=== PATIENT | female | born 1980 | race Caucasian/White ===

== ENCOUNTER 2016-09-16 19:17 | Emergency (ER) | payer MEDICAID ==
[2016-09-16 19:19] VITALS: BMI 33.6
== END 2016-09-16 20:25 | disposition left against medical advice (07) ==
LOC: ED 19:17
DX: M54.5 Low back pain (principal)

== ENCOUNTER 2016-09-17 01:01 | Emergency (ER) | payer MEDICAID ==
[2016-09-17 01:15] VITALS: TEMP 97.5; BMI 34.2
--- NOTE | 2016-09-17 01:24 | EDPRACDOC ---
- General Information Chief Complaint: Back Pain Stated Complaint: LOWER BACK/HIP PAIN Time Seen by Provider: 09/17/16 01:20 Information Source: Patient Mode Of Arrival: Car Home Medications: Home Medications Alprazolam [Xanax] 1 mg PO QID PRN 07/04/15 Furosemide [Lasix] 20 mg PO DAILY PRN 02/02/16 Albuterol Sulfate [Proair Hfa] 2 puff INH Q4H PRN 04/25/16 Gabapentin [Neurontin] 300 mg PO DAILY 04/25/16 Lidocaine/Prilocaine [Emla Cream] 30 gm TP .PRN PRN 04/25/16 Modafinil [Provigil] 200 mg PO BID PRN 04/25/16 Omeprazole [Prilosec] 20 mg PO BID 04/25/16 Oxycodone HCl [Oxycontin] 40 mg PO Q12H 04/25/16 Rivaroxaban [Xarelto] 20 mg PO DAILY 04/25/16 Capecitabine [Xeloda] 500 mg PO . DIR 06/02/16 Oxycodone Immediate Release [Oxy-Ir] 5 mg PO Q6H PRN #15 tab 06/02/16 Sulfamethoxazole/Trimethoprim [Bactrim Ds Tablet] 1 tab PO BID #20 tab 06/02/16 Unknown Antibiotic 0 mg PO BID 06/02/16 Ciprofloxacin HCl [Cipro] 500 mg PO BID #20 tab 09/17/16 Oxycodone HCl/Acetaminophen [Percocet 5-325 mg Tablet] 1 each PO Q4 #20 tablet 09/17/16 Permethrin [Elimite] 60 gm TP . #60 cream..g. 09/17/16 Allergies/Adverse Reactions: Allergies Allergy/AdvReac Type Severity Reaction Status Date / Time morphine Allergy Unknown cramping Verified 09/17/16 01:16 hydrocodone Allergy Unknown Verified 09/17/16 01:16 - History of Present Illness Onset: 2 months HPI: PATIENT HAS A HX OF STAGE 4 COLON CANCER. SHE HAS RESECTION OF LARGE AMOUNTS OF COLON INCLUDING RECTUM. TOTAL HYSTERECTOMY AND PARTIAL LIVER REMOVAL. PATIENT CONTINUES ON CHEMOTHERAPY- LAST DOSE YESTERDAY. COMPLAINS OF BACK PAIN RIGHT FLANK. NO DYSURIA. NO FEVER. HX OF MS WITH DEGENERATIVE DISEASE. Pain Location: Reports: Right, Flank Pain Radiates To: Reports: None Pain Caused By: Reports: Spontaneous Relevant History: Reports: Cancer Currently ?: No (HYSTERECTOMY) Pain Severity: Reports: Moderate Pain Quality: Reports: Aching ED Past Medical History - History Reviewed Yes Nurses notes reviewed and agree except as marked Travel Outside of [place] in the Last 3 Months?: No - Patient Medical History GI/ History: Reports: Gastroesophageal Reflux. 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 negative: Fever, Chills, Weakness, Fatigue, Loss of Appetite Eyes: No Symptoms Reported. negative: Redness, Blurred Vision, Double Vision, Discharge, Pain, Light Sensitive, Photophobia Ears: No Symptoms Reported. negative: Pain, Hearing Loss, Drainage, Ear Pulling Throat: No Symptoms Reported. negative: Pain, Swelling Nose: No Symptoms Reported. negative: Congestion, Bleeding, Discharge, Injection, Swelling, Deformity, Ecchymosis, Tender, Abrasion, Laceration Mouth: No Symptoms Reported. negative: Pain, Drooling Respiratory: No Symptoms Reported. negative: Cough, Brassy Cough, Barky Cough, Shortness of Breath, Wheezing, Hemoptysis Cardiovascular: No Symptoms Reported. negative: Chest Pain, Palpitations, Syncope, Edema, Orthopnea, PND, Skin Mottling, Cyanosis Gastrointestinal: No Symptoms Reported. negative: Pain, Constipation, Nausea, Vomiting, Diarrhea, Melena, Formula Intolerance Genitourinary: No Symptoms Reported. negative: Dysuria, Hematuria, Frequency, Discharge, Bleeding, Testicular Pain, Neurological: No Symptoms Reported. negative: Headache, Dizziness, Seizure, Numbness, Weakness, Speech Difficulty, Gait Difficulty Musculoskeletal: Back. negative: Arm, Ankle, Chestwall, Elbow, Forearm, Femur, Foot, Hand, Hip, Knee, Leg, Neck, Pelvis, Ribs, Shoulder, Wrist Integumentary: No Symptoms Reported. negative: Itching, Rash, Bruising, Wound Allergic/Immunologic: No Symptoms Reported. negative: Hives, Itching Hematologic: No Symptoms Reported. negative: Lymphadenopathy, Easy Bruising, Easy Bleeding Endocrine: No Symptoms Reported. negative: Weight Gain, Weight Loss Psychiatric: No Symptoms Reported. negative: Anxiety, Depression, Hallucinations, Insomnia, Suicidal - Physical Exam Constitutional: Alert (Awake) Oriented to: Time, Person, Place Last recorded Vital Signs: Last Vital Signs Temp 97.5 F 09/17/16 01:08 Pulse 89 09/17/16 01:08 Resp 18 09/17/16 01:08 BP 147/86 09/17/16 01:08 Pulse Ox 98 09/17/16 01:08 Oxygen Pulse Oxygen Saturation 98 O2 Device Room Air Oxygen Flow Rate Fraction of Inspired Oxygen ( FIO2) - HEENT Head: Normal ( normocephalic) Eye Exam: Normal (PERRL, EOMI, Sclera white) Oropharynx: Normal (Pharynx:Moist without exudate,Gums-no swelling) Tympanic Membrane: Normal ENT EAC: Normal TMJ: Normal Nose: No Symptoms Reported (septum midline) Neck: Normal (FROM, trachea at midline) - Respiratory/Cardiovascular Respiratory: Normal - CTA (BBS clear to auscultation without adventitious sounds ) Cardiovascular: Normal (RRR without murmur, gallop or rub) - GI Auscultation: Normal (NABS) Palpation: Normal (Soft,No rebound or guarding, non distended) Tenderness: Non tender Moody's Sign: Negative - Bladder: Normal - Musculoskeletal Extremities: Normal (Normal tone, Pulses 2+ No cyanosis or edema, FROM) - Integumentary Skin: Normal, Warm, Dry Lymphatics: Normal (no adenopathy) - Neurologic Memory Impaired: Normal Motor Function: Normal (Normal tone, Pulses 2+ No cyanosis or edema, FROM) Cranial Nerve: Normal (CN II-X11 intact sensation, strength 5/5) Cerebellar: Normal Mood Description: Normal Perception: Normal ED Back Exam - Neurologic Motor Deficit: None Reflexes: Normal - Musculoskeletal Cervical: Normal Thoracic: Normal Lumbar: Spasm Midline: Normal Paraspinous: Spasm Straight Leg Raise: Negative Pelvis: Normal - Results 09/17/16 01:35 09/17/16 01:35 Decision Time to Discharge: 03:57 - Departure Yes I personally saw and evaluated the patient. Disposition: Home Condition: Good Final Diagnosis: Low back pain Qualifiers: Chronicity: acute Back pain laterality: right Sciatica presence: without sciatica Qualified Code(s): M54.5 - Low back pain UTI (urinary tract infection) Qualifiers: Urinary tract infection type: acute cystitis Hematuria presence: without hematuria Qualified Code(s): N30.00 - Acute cystitis without hematuria Instructions: Core Strengthening Exercises (GEN), Back Pain, Urinary Tract Infection in Women (ED), Dysuria Education/Counseling Given To: Patient Education/Counseling Given Regarding: Diagnosis, Treatment, Prognosis, Follow Up Referrals: Cristina Mosquera MD [Primary Care Provider] - One Week Laith Hector MD [Staff Physician] - One Week Prescriptions: Ciprofloxacin HCl [Cipro] 500 mg PO BID #20 tab Oxycodone HCl/Acetaminophen [Percocet 5-325 mg Tablet] 1 each PO Q4 #20 tablet Permethrin [Elimite] 60 gm TP . #60 cream..g.
[2016-09-17 01:54] LABS: AUTOMATED BASOPHIL 2.6 % (0-2); AUTOMATED EOSINOPHIL 4.1 % (0-5); AUTOMATED LYMPH 37.5 % (17-44); AUTOMATED MONOCYTE 6.1 % (3-10); AUTOMATED NEUTROPHIL 49.7 % (45-76); MPV 7.7 fL (7.4-10.4)
[2016-09-17] MEDS ORDERED: HYDROmorphone 1 MG INJECTION IV ONE ×2 (01:59→03:51)
[2016-09-17] MEDS ORDERED: NS 1,000 ML IV ONE (01:59)
[2016-09-17] MEDS ORDERED: ONDANSETRON HCL 4 MG/2 ML VIAL IV ONE (01:59)
[2016-09-17 02:00] LABS: BLOOD UREA NITROGEN 18 MG/DL (7-17); CALC CORRECTED 9.2 MG/DL (8.4-10.2); CALCIUM 9.1 MG/DL (8.4-10.2); CALCULATED OSMOLALITY 275 MOs/Kg (270-290); CHLORIDE 105 mEq/L (98-107); GLUCOSE 92 MG/DL (70-99); SODIUM LEVEL 142 mEq/L (137-146); TOTAL PROTEIN 7.4 G/DL (6.3-8.2)
[2016-09-17] MEDS ORDERED: Pharmacy Review for Metformin - IV Contrast Given SCH (02:00)
[2016-09-17 02:15] LABS: LEUKOCYTES/URINE 2+ (NEGATIVE); NITRITE/URINE NEG (NEGATIVE); URINE OCCULT BLOOD NEG (NEG/TRACE)
[2016-09-17] MEDS ORDERED: CIPROFLOXACIN HCL 500 MG TAB PO ONE (03:18)
--- NOTE | 2016-09-17 03:41 | DIRPT ---
CLINICAL DATA: 35-year-old female with back pain EXAM: CT ABDOMEN AND PELVIS WITH CONTRAST TECHNIQUE: Multidetector CT imaging of the abdomen and pelvis was performed using the standard protocol following bolus administration of intravenous contrast. CONTRAST: 100 cc Isovue 370 COMPARISON: Abdominal radiograph dated 03/22/[address] dated 02/02/2016 FINDINGS: The visualized lung bases are clear. No intra-abdominal free air or free fluid. Cholecystectomy. The liver, pancreas, spleen, adrenal glands appear unremarkable. There is no hydronephrosis. Subcentimeter left renal hypodensity is too small to characterize but appears stable compared to prior study and most likely represents a cyst. The visualized ureters and urinary bladder appear unremarkable. Hysterectomy. There is postsurgical changes of right hemicolectomy with ileotransverse anastomosis. No evidence of bowel obstruction or inflammation. The abdominal aorta and IVC appear patent. No portal venous gas identified. There is no adenopathy. Midline vertical anterior abdominal wall incisional scar. The abdominal wall soft tissues are otherwise unremarkable. The osseous structures are intact. IMPRESSION: No acute intra-abdominal or pelvic pathology. Electronically Signed By: Bishop Johnson M.D. On: 09/17/2016 03:38
[2016-09-17 04:26] VITALS: BP 118/82; PULSE 73
== END 2016-09-17 04:25 | disposition home or self-care (01) ==
LOC: ED 01:01
DX: N30.00 Acute cystitis without hematuria (principal); M54.5 Low back pain; R10.9 Unspecified abdominal pain
CPT/HCPCS: 36415; 74177; 80053; 81001; 85025; 87086; 96361; 96374; 96375; 96376; 99284; A9698; J1170; J2405; J3490